=== PATIENT | male | born 1990 | race African-American/Black ===

== ENCOUNTER 2017-02-13 08:01 | Emergency (ER) | payer OTHER, SELFPAY ==
[2017-02-13] MEDS ORDERED: Ondansetron ODT 4 MG TAB ONE (08:23)
== END 2017-02-13 08:26 | disposition home or self-care (01) ==
LOC: BURERS 08:01
DX: J11.1 Influenza due to unidentified influenza virus with other respiratory manifestations (principal)
CPT/HCPCS: 99283; Q0162